=== PATIENT | male | born 1955 ===

== ENCOUNTER → 2020-05-19 | Outpatient (CLI) | payer OTHER | LOC: ZCOL.LAB 15:38 | DX: J06.9 Acute upper respiratory infection, unspecified (principal); Z20.828 Contact with and (suspected) exposure to other viral communicable diseases ==

== ENCOUNTER → 2024-02-05 | Outpatient (CLI) | payer MEDICARE | LOC: COL.RAD 13:52 | DX: Z12.2 Encounter for screening for malignant neoplasm of respiratory organs (principal); Z87.891 Personal history of nicotine dependence ==